=== PATIENT | male | born 1960 | race Native Hawaiian/Other Pacific Islander ===

== ENCOUNTER 2016-12-13 14:35 | Emergency (ER) | payer MEDICAID ==
[2016-12-13 14:35] VITALS: BMI 27.7
[2016-12-13 15:16] VITALS: BP 157/81; TEMP 98.4; O2SAT 98
[2016-12-13] MEDS ORDERED: Lidocaine 5% Patch TD STA (15:27)
--- NOTE | 2016-12-13 15:27 | ED PDOC ---
Arrival/HPI - General Chief Complaint: Back Pain Time Seen by Provider: 12/13/16 15:19 Historian: Patient - History of Present Illness Narrative History of Present Illness (Text): 12/13/16 15:21 56 y/o male,no pmh, nkda, c/o lower back pain x 2 months with no fall or trauma. Aching pain, aggravated by movement, no urinary symptoms, no urinary or bowel incontinence or retention, no flank pain, no chest pain or shortness of breath, no rash, no other medical or psychological complaints. Past Medical History - Provider Review Nursing Documentation Reviewed: Yes - Infectious Disease Hx of Infectious Diseases: None - Tetanus Immunization Tetanus Immunization: Unknown - Past Medical History Past Medical History: No Previous - Psychiatric Hx Substance Use: No - Past Surgical History Past Surgical History: No Previous - Anesthesia Hx Anesthesia Reactions: No Hx Malignant Hyperthermia: No - Suicidal Assessment Feels Threatened In Home Enviroment: No Family/Social History - Physician Review Nursing Documentation Reviewed: Yes Family/Social History: Unknown Family HX Smoking Status: Never Smoked Hx Alcohol Use: No Hx Substance Use: No Hx Substance Use Treatment: No Allergies/Home Meds Allergies/Adverse Reactions: Allergies No Known Allergies Allergy (Verified 12/13/16 15:16) Review of Systems - Review of Systems Constitutional: absent: Fatigue, Fevers Eyes: absent: Vision Changes ENT: absent: Hearing Changes Respiratory: absent: Cough, Sputum Cardiovascular: absent: Chest Pain Gastrointestinal: absent: Abdominal Pain, Nausea, Vomiting Musculoskeletal: Back Pain. absent: Arthralgias, Neck Pain, Joint Swelling, Myalgias Skin: absent: Rash, Pruritis, Skin Lesions, Laceration, Abscess, Ulcer, Cellulitis Physical Exam Vital Signs Reviewed: Yes Vital Signs Temp Pulse Resp BP Pulse Ox 12/13/16 15:33 77 18 98 12/13/16 15:11 98.4 F 76 18 157/81 H 98 Temperature: Afebrile Blood Pressure: Normal Pulse: Regular Respiratory Rate: Normal Appearance: Positive for: Well-Appearing, Non-Toxic, Comfortable Pain Distress: Moderate Mental Status: Positive for: Alert and Oriented X 3 - Systems Exam Head: Present: Atraumatic, Normocephalic Pupils: Present: PERRL Extroacular Muscles: Present: EOMI Conjunctiva: Present: Normal Mouth: Present: Moist Mucous Membranes Neck: Present: Normal Range of Motion Respiratory/Chest: Present: Clear to Auscultation, Good Air Exchange. No: Respiratory Distress, Accessory Muscle Use Cardiovascular: Present: Regular Rate and Rhythm, Normal S1, S2. No: Murmurs Abdomen: Present: Normal Bowel Sounds. No: Tenderness, Distention, Peritoneal Signs Back: Present: Normal Inspection, Paraspinal Tenderness (LS spine: mild rt. paraspinal tenderness, no midline tenderness or step off, no rash, no cva tenderness, FROM without limitation, sensation intact, motor 5/5). No: CVA Tenderness, Midline Tenderness, Pain with Leg Raise Upper Extremity: Present: Normal Inspection. No: Cyanosis, Edema Lower Extremity: Present: Normal Inspection. No: Edema Neurological: Present: GCS=15, CN II-XII Intact, Speech Normal, Motor Func Grossly Intact, Gait Normal, Memory Normal Skin: Present: Warm, Dry, Normal Color. No: Rashes Psychiatric: Present: Alert, Oriented x 3, Normal Insight, Normal Concentration Medical Decision Making ED Course and Treatment: 12/13/16 15:21 -toradol IM and flexeril. -LS spine xray -observe and reassess 12/13/16 16:20 -xray show no acute findings, advised outpatient MRI. -Discharge home with naproxen, flexeril, lidoderm patch, heat compression, avoid strenuous exercise or activity, follow up with your own pmd and orthopedic within 2 days, return to the ER for any new or worsening signs or symptoms. - RAD Interpretation Radiology Orders: 12/13/16 15:27 LS SPINE WITH OBL > 18 YRS OLD [RAD] Stat PROCEDURE: Radiographs of the Lumbar Spine. HISTORY: lower back pain x 2 months COMPARISON: No prior. FINDINGS: BONES: Normal alignment. No listhesis. No fracture. DISC SPACES: Unremarkable. OTHER FINDINGS: None. IMPRESSION: Unremarkable radiographs of the lumbar spine. Vending Machine Refiller: Radiologist - Medication Orders Current Medication Orders: Discontinued Medications Ketorolac Tromethamine (Toradol) 60 mg IM STAT STA Stop: 12/13/16 15:28 Last Admin: 12/13/16 15:41 Dose: 60 MG IM Administration Charges Document 12/13/16 15:41 [email or web address] (Rec: 12/13/16 15:41 [email or web address] [facility]- [email or web address]) Injection Site MAR Injection Site Right Gluteus Presley Charges for Administration # of IM Administrations 1 Lidocaine (Lidoderm) 1 ea TD STAT STA Stop: 12/13/16 15:28 Last Admin: 12/13/16 15:41 Dose: 1 EA MAR Transdermal Patch Site Document 12/13/16 15:41 [email or web address] (Rec: 12/13/16 15:41 [email or web address] [facility]- [email or web address]) Transdermal Patch Site Transdermal Patch Site Right Lower Back - PA / LOSS PREVENTION OFFICER / Resident Statement MD/DO has reviewed & agrees with the documentation as recorded. Disposition/Present on Arrival - Present on Arrival Any Indicators Present on Arrival: No History of DVT/PE: No History of Uncontrolled Diabetes: No Urinary Catheter: No History of Decub. Ulcer: No History Surgical Site Infection Following: None - Disposition Have Diagnosis and Disposition been Completed?: Yes Diagnosis: Chronic lower back pain Disposition: HOME/ ROUTINE Disposition Time: 15:21 Patient Plan: Discharge Patient Problems: Current Active Problems Problem Status Diagnosed Chronic lower back pain Acute Condition: IMPROVED Additional Instructions: Discharge home with naproxen, flexeril, lidoderm patch, heat compression, avoid strenuous exercise or activity, follow up with your own pmd and orthopedic within 2 days, return to the ER for any new or worsening signs or symptoms. Prescriptions: Cyclobenzaprine [Cyclobenzaprine HCl] 10 mg PO TID PRN #21 tab PRN Reason: Other Lidocaine 5% [Lidoderm] 1 patch TOP DAILY #10 patch Naproxen 500 mg PO BID PRN #20 tab PRN Reason: Other Referrals: [facility] [Outside] - Follow up with primary Benjamín Palomares III, MD [Medical Doctor] - Follow up with primary Forms: WORK NOTE
--- NOTE | 2016-12-13 16:18 | RAD ---
PROCEDURE: Radiographs of the Lumbar Spine. HISTORY: lower back pain x 2 months COMPARISON: No prior. FINDINGS: BONES: Normal alignment. No listhesis. No fracture. DISC SPACES: Unremarkable. OTHER FINDINGS: None. IMPRESSION: Unremarkable radiographs of the lumbar spine.
[2016-12-13 16:44] VITALS: PULSE 80; RESP 16
== END 2016-12-13 16:43 | disposition home or self-care (01) ==
LOC: ED 14:35
DX: M54.5 Low back pain (principal); G89.29 Other chronic pain
CPT/HCPCS: 72110; 96372; 99282; J1885